=== PATIENT | female | born 1980 | race Caucasian/White ===

== ENCOUNTER 2017-01-30 09:38 | Emergency (ER) | payer MEDICAID ==
[2012-10-26 08:38] VITALS: BMI 31.6
[~2017-01-30 09:38] MED LIST: MOTRIN600 MG PO; PERCOCET 5/3251 TA1 PO; PERCODAN TABLET1 TAB PO; PRENATAL-U CA1 UDCAP PO
== END 2017-01-30 11:15 | disposition home or self-care (01) ==
LOC: D.ER 09:38
DX: Z86.59 Personal history of other mental and behavioral disorders (principal); F41.9 Anxiety disorder, unspecified